=== PATIENT | female | born 1945 | race Caucasian/White ===

== ENCOUNTER 2021-10-08 06:49 | Inpatient (IN) ==
[~2021-10-08 06:49] MED LIST: Buffered Lidocaine 1% SYRIN 1 ml INTRADERM ONE; Lactated Ringers 1000 ml BAG 1,000 ML IV SCH
[2021-10-08] MEDS ORDERED: Vancomycin 1,500 MG in NS 0.9% 250 ml 250 ML IVPB ONE (07:00)
[2021-10-08] MEDS ORDERED: ceFAZolin 2 GM in NS PREMIX 2 GM/100 ML BAG IVPB ONE (08:05)
[2021-10-08] MEDS ORDERED: Rocuronium 50 mg VIAL 10 mg/ml 5 ml VIAL (50 mg) ONE ×2 (08:44→08:50)
[2021-10-08] MEDS ORDERED: Midazolam 2 mg/2 ml VIAL 1 mg/ml 2 ml VIAL (2 mg) ONE (08:44)
[2021-10-08] MEDS ORDERED: fentaNYL 250 mcg/5 ml 50 MCG/ML 5 ml VIAL (250 MCG) ONE (08:44)
[2021-10-08] MEDS ORDERED: Lidocaine 2% PF 5 ML VIAL ONE (08:46)
[2021-10-08] MEDS ORDERED: Propofol 10 MG/ML 20 ML BTL ONE (08:46)
[2021-10-08] MEDS ORDERED: Dexamethasone IV 4 MG/ML VIAL 1 ml VIAL ONE (08:46)
[2021-10-08] MEDS ORDERED: Ondansetron 4 mg VIAL 2 MG/ML 2 ml VIAL ONE (08:46)
[2021-10-08] MEDS ORDERED: Vancomycin 1,000 MG VIAL ONE (08:58)
[2021-10-08] MEDS ORDERED: Bupivacaine 0.5% 50 ML MDV VIAL ONE (08:59)
[2021-10-08 09:26] LABS: INR 0.98 (0.86-1.15)
[2021-10-08] MEDS ORDERED: Lidocaine 1.5% EPI 1:200,000 30 ML SDV ONE (10:34)
[2021-10-08] MEDS ORDERED: Phenylephrine 40 mcg/mL 10mL (400mcg) SYRINGE ONE (10:47)
[2021-10-08] MEDS ORDERED: Ondansetron 4 mg VIAL 2 MG/ML 2 ml VIAL IV PRN ×2 (11:32→13:33)
[2021-10-08] MEDS ORDERED: Naloxone 0.4 mg VIAL 0.4 mg/ml 1 ml VIAL IV PRN (11:32)
[2021-10-08] MEDS ORDERED: Acetaminophen IV 1 GM/100ML 100 ML IV PRN (11:32)
[2021-10-08] MEDS ORDERED: DiMENhydriNATE IV 50 mg/ml 1 ml VIAL IV PUSH PRN (11:32)
[2021-10-08] MEDS ORDERED: HYDROmorphone 1 MG/1 ML SYRINGE IV PRN (11:32)
[2021-10-08] MEDS ORDERED: Sugammadex 500 MG/5 ML 5 ml VIAL IV PUSH ONE (12:32)
[2021-10-08] MEDS ORDERED: Morphine 2 MG/ML SYRINGE IV PRN (13:33)
[2021-10-08] MEDS ORDERED: diPHENhydraMINE 25 mg TAB PO PRN (13:33)
[2021-10-08] MEDS ORDERED: Ondansetron ODT 4 mg TAB 4 MG TAB PO PRN (13:33)
[2021-10-08] MEDS ORDERED: diPHENhydraMINE IV 50 MG/ML 1 ml VIAL (BENADRYL) IV PRN (13:33)
[2021-10-08] MEDS ORDERED: Magnesium Hydroxide LIQ 30 ML UDC PO PRN (13:33)
[2021-10-08] MEDS ORDERED: Lactulose 30 ml UDC PO PRN (13:33)
[2021-10-08] MEDS ORDERED: Acetaminophen IV 1 GM/100ML 100 ML IV ONE (13:38)
[2021-10-08] MEDS ORDERED: Lactated Ringers 1000 ml BAG 1,000 ML IV SCH (14:00)
[2021-10-08] MEDS ORDERED: fentaNYL 100 mcg/2 ml 50 MCG/ML VIAL ONE (14:06)
[2021-10-08] MEDS: fentaNYL 100 mcg/2 ml 50 MCG/ML VIAL IV PRN ×2 (14:07→14:26)
[2021-10-08] MEDS: ceFAZolin 1 GM in Dextrose 1 GM/50 ML BAG IVPB SCH (18:50)
[2021-10-08] MEDS: Magnesium Hydroxide LIQ 30 ML UDC PO SCH (22:06)
[2021-10-09] MEDS: ceFAZolin 1 GM in Dextrose 1 GM/50 ML BAG IVPB SCH ×2 (02:59→11:06)
[2021-10-09 06:40] LABS: Hematocrit 33 % (35-47); Hemoglobin 10.8 g/dL (12.0-16.0); Platelet Count 228 10^3/uL (150-450)
[2021-10-09 07:10] LABS: Calcium 9.4 mg/dL (8.6-10.3); eGFR CKD-EPI 22.5 (>60)
[2021-10-09 07:13] LABS: Potassium 5.3 mmol/L (3.5-5.0)
[2021-10-09] MEDS: Vitamin THERAPEUTIC TAB PO SCH (09:19)
[2021-10-09] MEDS: Magnesium Hydroxide LIQ 30 ML UDC PO SCH ×2 (09:22→21:35)
[2021-10-09] MEDS ORDERED: Morphine 4 MG/ML VIAL (1 ml) IV PRN (10:41)
[2021-10-09] MEDS ORDERED: NS 0.9% 250 ml 250 ML IV ONE ×2 (11:33→14:48)
[2021-10-09] MEDS: NS 0.9% 1000 ml BAG 1,000 ML IV SCH ×2 (12:13→18:59)
[2021-10-09] MEDS ORDERED: NS 0.9% 500 ml BAG 500 ML IV ONE ×2 (14:48→16:04)
[2021-10-09 15:23] LABS: Hematocrit 25 % (35-47); Hemoglobin 8.5 g/dL (12.0-16.0); Mean Corpuscular HGB Conc 34 g/dL (31-36); Mean Corpuscular Hemoglobin 30 pg (27-31); Mean Corpuscular Volume 88 fL (80-97); Mean Platelet Volume 8.7 fL (7.4-10.4); Platelet Count 184 10^3/uL (150-450); Red Blood Count 2.86 10^6 /uL (3.70-4.87); Red Cell Distribution Width 15 % (10-15)
[2021-10-09 15:52] LABS: Calcium 8.4 mg/dL (8.6-10.3); Potassium 4.8 mmol/L (3.5-5.0); eGFR CKD-EPI 23.1 (>60)
[2021-10-09] MEDS ORDERED: Lactated Ringers 1000 ml BAG 1,000 ML IV SCH (21:39)
[2021-10-09 22:43] LABS: Hematocrit 27 % (35-47); Hemoglobin 8.8 g/dL (12.0-16.0)
[2021-10-09 23:03] LABS: Urine Appearance Cloudy; Urine Bilirubin Negative (Negative); Urine Blood Negative (Negative); Urine Color Straw; Urine Glucose Negative (Negative); Urine Ketones Negative (Negative); Urine Nitrite Negative (Negative); Urine Protein Negative (Negative); Urine Specific Gravity 1.004 (1.002-1.030); Urine Urobilinogen Negative (Negative)
[2021-10-09 23:17] LABS: Calcium 8.5 mg/dL (8.6-10.3); Potassium 4.7 mmol/L (3.5-5.0); eGFR CKD-EPI 24.1 (>60)
[2021-10-10] MEDS ORDERED: Lactated Ringers 1000 ml BAG 1,000 ML IV SCH (01:00)
[2021-10-10 03:14] LABS: Urine Appearance Clear; Urine Bilirubin Negative (Negative); Urine Blood Negative (Negative); Urine Color Straw; Urine Glucose Negative (Negative); Urine Ketones Negative (Negative); Urine Nitrite Negative (Negative); Urine Protein Negative (Negative); Urine Specific Gravity 1.005 (1.002-1.030); Urine Urobilinogen Negative (Negative)
[2021-10-10 03:27] LABS: Urine Creatinine Concentration 33.04 mg/dL
[2021-10-10] MEDS: Nystatin TOP POWDER 15 GM BTL TOPICAL SCH ×4 (06:15→21:26)
[2021-10-10] MEDS: Magnesium Hydroxide LIQ 30 ML UDC PO SCH ×2 (08:07→21:23)
[2021-10-10] MEDS: Vitamin THERAPEUTIC TAB PO SCH (08:07)
[2021-10-10 10:20] LABS: ABS Basophils 0.1 10^3/ul (0-0.2); ABS Eosinophils 0.2 10^3/ul (0-0.6); ABS Lymphocytes 1.3 10^3/ul (1.0-4.8); ABS Monocytes 0.5 10^3/ul (0-0.8); ABS Neutrophils 6.9 10^3/ul (1.5-7.7); Eosinophil % 2.3 %; Hematocrit 27 % (35-47); Hemoglobin 9.2 g/dL (12.0-16.0); Lymphocyte % 14.1 %; Mean Corpuscular HGB Conc 34 g/dL (31-36); Mean Corpuscular Hemoglobin 30 pg (27-31); Mean Corpuscular Volume 88 fL (80-97); Mean Platelet Volume 8.8 fL (7.4-10.4); Platelet Count 214 10^3/uL (150-450); Red Blood Count 3.11 10^6 /uL (3.70-4.87); Red Cell Distribution Width 15 % (10-15)
[2021-10-10 10:21] LABS: Hematocrit 28 % (35-47); Hemoglobin 9.5 g/dL (12.0-16.0); Mean Platelet Volume 8.9 fL (7.4-10.4); Platelet Count 214 10^3/uL (150-450)
[2021-10-10 10:47] LABS: Calcium 9.3 mg/dL (8.6-10.3); Potassium 4.6 mmol/L (3.5-5.0); eGFR CKD-EPI 29.5 (>60)
[2021-10-11 08:56] LABS: ABS Basophils 0.1 10^3/ul (0-0.2); ABS Eosinophils 0.2 10^3/ul (0-0.6); ABS Lymphocytes 1.1 10^3/ul (1.0-4.8); ABS Monocytes 0.5 10^3/ul (0-0.8); ABS Neutrophils 4.2 10^3/ul (1.5-7.7); Eosinophil % 3.6 %; Hematocrit 25 % (35-47); Hemoglobin 8.3 g/dL (12.0-16.0); Lymphocyte % 18.1 %; Mean Corpuscular HGB Conc 34 g/dL (31-36); Mean Corpuscular Hemoglobin 30 pg (27-31); Mean Corpuscular Volume 88 fL (80-97); Platelet Count 211 10^3/uL (150-450); Red Cell Distribution Width 15 % (10-15); White Blood Count 6.1 10^3/uL (3.5-10.8)
[2021-10-11 09:32] LABS: Calcium 9.2 mg/dL (8.6-10.3); Potassium 4.7 mmol/L (3.5-5.0); eGFR CKD-EPI 34.3 (>60)
[2021-10-11] MEDS: Magnesium Hydroxide LIQ 30 ML UDC PO SCH (10:20)
[2021-10-11] MEDS: Vitamin THERAPEUTIC TAB PO SCH (10:21)
[2021-10-11] MEDS: Nystatin TOP POWDER 15 GM BTL TOPICAL SCH (10:35)
[2021-10-11 11:25] VITALS: BP 110/45
== END 2021-10-11 14:37 | disposition home or self-care (01) | DRG 470 ==
LOC: AA 06:49 → SSU 15:23 → ICU 10-10 00:54 → SSU 10-10 12:04
PROVIDERS: ADMIT Orthopaedic Surgery; ATTEND Orthopaedic Surgery

== ENCOUNTER 2022-05-20 05:34 | Observation (INO) ==
[~2022-05-20 05:34] MED LIST changes: +HYDROcodone/ACETAMIN 5/325 mg TAB PO PRN; +Metoclopramide 5 MG/ML VIAL (10 mg) IV PRN; +Naloxone 0.4 mg VIAL 0.4 mg/ml 1 ml VIAL IV PRN; +Ondansetron 4 mg VIAL 2 MG/ML 2 ml VIAL IV PRN; +fentaNYL 100 mcg/2 ml 50 MCG/ML VIAL IV PRN
[2022-05-20 06:32] LABS: INR 0.96 (0.89-1.11)
[2022-05-20] MEDS ORDERED: Clindamycin 900 MG/D5W BAG 900 MG/50 ML BAG IVPB ONE (06:39)
[2022-05-20] MEDS ORDERED: ceFAZolin 2 GM PREMIX 2 GM/50 ML BAG ONE (06:54)
[2022-05-20] MEDS ORDERED: Dexamethasone IV 4 MG/ML VIAL 1 ml VIAL ONE ×3 (07:00→08:23)
[2022-05-20] MEDS ORDERED: Midazolam 2 mg/2 ml VIAL 1 mg/ml 2 ml VIAL (2 mg) ONE (07:00)
[2022-05-20] MEDS ORDERED: fentaNYL 100 mcg/2 ml 50 MCG/ML VIAL ONE ×3 (07:00→10:35)
[2022-05-20] MEDS ORDERED: Propofol 10 MG/ML 20 ML BTL ONE ×2 (07:00→10:35)
[2022-05-20] MEDS ORDERED: Ondansetron 4 mg VIAL 2 MG/ML 2 ml VIAL ONE (07:00)
[2022-05-20] MEDS ORDERED: Lidocaine 2% PF 5 ML VIAL ONE ×2 (07:00→10:35)
[2022-05-20] MEDS ORDERED: ROPIVACAINE 5 MG/ML 30 ML BTL (0.5%) ONE (07:07)
[2022-05-20] MEDS ORDERED: Vancomycin 1,000 MG VIAL ONE (07:39)
[2022-05-20] MEDS ORDERED: fentaNYL 250 mcg/5 ml 50 MCG/ML 5 ml VIAL (250 MCG) ONE (08:09)
[2022-05-20] MEDS ORDERED: Rocuronium 50 mg VIAL 10 mg/ml 5 ml VIAL (50 mg) ONE (08:18)
[2022-05-20] MEDS ORDERED: Glycopyrrolate IV 0.2 MG/ML 1 ML VIAL ONE ×2 (08:32)
[2022-05-20] MEDS ORDERED: Morphine 10 MG/ML VIAL (1 ml) ONE (08:36)
[2022-05-20] MEDS ORDERED: Lactulose 30 ml UDC PO PRN (10:31)
[2022-05-20] MEDS ORDERED: Ondansetron ODT 4 mg TAB 4 MG TAB PO PRN (10:31)
[2022-05-20] MEDS ORDERED: Morphine 2 MG/ML SYRINGE IV PRN (10:31)
[2022-05-20] MEDS ORDERED: Magnesium Hydroxide LIQ 30 ML UDC PO PRN (10:31)
[2022-05-20] MEDS ORDERED: Ondansetron 4 mg VIAL 2 MG/ML 2 ml VIAL IV PRN (10:31)
[2022-05-20] MEDS ORDERED: Labetalol IV 5 MG/ML 20 ml VIAL ONE (11:22)
[2022-05-20] MEDS ORDERED: Labetalol IV 5 MG/ML 20 ml VIAL IV PUSH ONE (11:32)
[2022-05-20] MEDS: Lactated Ringers 1000 ml BAG 1,000 ML IV SCH (14:11)
[2022-05-20 15:54] LABS: Calcium 9.4 mg/dL (8.6-10.3); Magnesium 2.2 mg/dL (1.9-2.7); eGFR CKD-EPI 25.4 (>60)
[2022-05-20 15:56] LABS: Potassium 5.3 mmol/L (3.5-5.0)
[2022-05-20] MEDS: ceFAZolin 1 GM ADVAN 1 GM in NS 0.9% 50 ML 50 ML IVPB SCH ×2 (17:46→23:20)
[2022-05-20] MEDS: Magnesium Hydroxide LIQ 30 ML UDC PO SCH (20:25)
[2022-05-21] MEDS: Lactated Ringers 1000 ml BAG 1,000 ML IV SCH (00:55)
[2022-05-21 06:28] LABS: Hematocrit 37 % (35-47); Hemoglobin 11.8 g/dL (12.0-16.0); Mean Platelet Volume 8.7 fL (7.4-10.4); Platelet Count 252 10^3/uL (150-450)
[2022-05-21] MEDS ORDERED: SODIUM ZIRCONIUM CYCLOSILICATE 10 GM PACKET PO ONE (07:31)
[2022-05-21 07:32] LABS: Calcium 8.8 mg/dL (8.6-10.3); Potassium 4.8 mmol/L (3.5-5.0); eGFR CKD-EPI 24.9 (>60)
[2022-05-21] MEDS: ceFAZolin 1 GM ADVAN 1 GM in NS 0.9% 50 ML 50 ML IVPB SCH (08:26)
[2022-05-21] MEDS ORDERED: Vitamin THERAPEUTIC TAB PO SCH (09:00)
[2022-05-21] MEDS: Magnesium Hydroxide LIQ 30 ML UDC PO SCH (10:16)
[2022-05-21 12:17] VITALS: BP 138/71
[2022-05-21 12:53] LABS: Calcium 9.3 mg/dL (8.6-10.3); eGFR CKD-EPI 24.8 (>60)
== END 2022-05-21 16:00 | disposition home or self-care (01) ==
LOC: OR 05:34 → SSU 05:34
PROVIDERS: ADMIT Orthopaedic Surgery; ATTEND Orthopaedic Surgery